=== PATIENT | male | born 1960 | race Caucasian/White ===

== ENCOUNTER 2021-01-05 06:00 | Outpatient (RCR) | payer MEDICARE, MEDICAID, SELFPAY | END 2021-01-23 23:59 | disposition home or self-care (01) | LOC: MOT 06:00 | PROVIDERS: PCP Family Medicine; Referring Provider Orthopaedic Surgery Adult Reconstructive Orthopaedic Surgery; Visit Provider Orthopaedic Surgery Adult Reconstructive Orthopaedic Surgery | DX: I87.2 Venous insufficiency (chronic) (peripheral) (principal); Z96.652 Presence of left artificial knee joint | CPT/HCPCS: 97140; 97166 ==

== ENCOUNTER 2024-08-29 13:25 | Outpatient (RCR) | payer MEDICARE, MEDICAID, SELFPAY | END 2024-09-25 23:59 | disposition home or self-care (01) | LOC: SPT 13:25 | PROVIDERS: Visit Provider Family Medicine | DX: I89.0 Lymphedema, not elsewhere classified (principal) | CPT/HCPCS: 97161 ==